=== PATIENT | male | born 1940 | race Caucasian/White ===

== ENCOUNTER 2023-11-10 12:17 | Emergency (ER) | payer MEDICARE, OTHER, SELFPAY ==
[2023-11-10 12:25] VITALS: BP 147/83
--- NOTE | 2023-11-10 12:54 | ED.SKININJ ---
HPI-Injury
General
Chief Complaint: Skin Surface Trauma
Source: patient
Exam Limitations: none
Time Seen by Provider: 11/10/23 12:39
Nursing documentation reviewed up to this point in time: agreed with
Travel History
Have you had any contact with someone who has COVID-19?: No
Do you have any symptoms of coronavirus? Fever > 100 degrees, chills, cough, shortness of breath, sore throat, loss of taste or smell, muscle aches, or headache?: No
History of Present Illness-Injury
Initial Injury comments:
83-year-old male states he was using his table saw and cut the tip of his left thumb. This occurred at home within the past few hours. He is unsure of his last tetanus immunization. He is not anticoagulated.
Past History
Past History
ED Past Medical History: HTN
ED Past Surgical History: Appendectomy, Urological (TURP) and Other (Hernia repair, )
Review of Systems
Review of Systems
Allergies reviewed?: Yes
All Other Systems: ROS reviewed and negative except as documented in HPI and ROS
Skin: Reports other (Cut tip of left thumb )
Phy Exam
Physical Exam
Physical Exam:
PHYSICAL EXAMINATION:
General: no apparent distress, not acutely ill
Neuro: alert and oriented.
Psychiatric: well kept. interactive and cooperative
Musculoskeletal: Moves with ease
Skin: Warm, pink. Tip of left thumb is macerated to about 3 mm deep and 5 mm wide with a small piece of the distal nail avulsed. Bleeding is controlled.
Course
Orders/Labs/Results
Orders:
Orders
11/10/23 12:39
Tetanus/Diphth/Acelpertussis [Adacel] 0.5 ml IM .ONCE ONE
Vital Signs
Initial and Last Documented VS:
Initial Vital Signs
Temp Pulse Resp BP Pulse Ox
98.1 F 84 18 147/83 97
11/10/23 12:25 11/10/23 12:25 11/10/23 12:25 11/10/23 12:25 11/10/23 12:25
Last Documented Vital Signs
Temp Pulse Resp BP Pulse Ox
98.1 F 84 18 147/83 97
11/10/23 12:25 11/10/23 12:25 11/10/23 12:25 11/10/23 12:25 11/10/23 12:25
MDM/Problems Addressed
MDM/Problems Addressed:
83-year-old male states he was using his table saw and cut the tip of his left thumb. This occurred at home within the past few hours. He is unsure of his last tetanus immunization. He is not anticoagulated.
Wound cleansed with soap and water, edges are macerated it is basically an avulsion type injury involving 1 small piece of the distal fingernail, Gelfoam and tube gauze dressing applied.
Tdap updated
*Critical Care Note
Total Time (30-74mins, 75-104mins- exclusive of procedures): Not Applicable
ED Attending Note
-
Portions of this chart may have been created with voice recognition software.� Occasional wrong word or��sound alike� substitutions may have occurred due to the inherent limitations of voice recognition software.
Discharge Plan
Departure
Patient Disposition: Home (Routine Discharge)
Date of Disposition: 11/10/23
Time of Disposition: 12:57
Patient with high blood pressure during this ER visit?: No
Condition: Good
Discharge Problem:
Laceration of left thumb
Instructions: Wound Care (DC)
Prescriptions:
No Action
lisinopril 10 MG tablet
15 mg PO DAILY
hydrocodone-acetaminophen [[place]] 1 EACH tablet
1 ea PO Q6HPRN PRN (Reason: pain) Qty: 40 0RF
Rx Instructions:
Take 1 tablet four times a day, every 6 hours for pain
lorazepam 1 MG tablet
1 mg PO TIDPRN PRN (Reason: pain/spasms) Qty: 40 0RF
Referrals:
Your, Doctor [Other] - As needed
Activity Restrictions/Additional Instructions:
As we discussed, it may take 3 to 4 weeks for this area to heal completely.
Remove the dressing in 2 days then wash it daily with soap and water, apply antibiotic ointment and Band-Aids
Use the aluminum fingertip splint as needed for protection.
Seek medical care immediately for signs of infection which may include increasing redness, pain, swelling, pus drainage or fever
Interventions
Interventions:
*Risk Screen - Suicide Last Done: 11/10/23 12:53
*General Assessment Last Done: 11/10/23 12:53
*Neglect/Abuse Screening Last Done: 11/10/23 12:53
ED- Fall Risk Assessment Last Done: 11/10/23 13:19
*ED COVID-19 Vaccine History Last Done: 11/10/23 12:53
*Nursing Disposition Last Done: 11/10/23 13:19
ED-Skin Assessment Last Done: 11/10/23 12:52
Discharge Date and Time
Discharge Date/Time: 11/10/23 13:20
[2023-11-10] MEDS: ADACEL 0.5 ML IM (13:14)
== END 2023-11-10 13:20 | disposition home or self-care (01) ==
LOC: EMR 12:17
PROVIDERS: EMERGENCY PHYSICIAN Emergency Medicine; FAMILY PHYSICIAN Family Medicine
DX: S61.012A Laceration without foreign body of left thumb without damage to nail, initial encounter (principal); W27.0XXA Contact with workbench tool, initial encounter; Z23 Encounter for immunization
CPT/HCPCS: 99282; 90471; 90715

== ENCOUNTER 2023-11-14 07:58 | Emergency (ER) | payer MEDICARE, OTHER, SELFPAY ==
[2023-11-14 08:03] VITALS: BP 127/70
--- NOTE | 2023-11-14 08:25 | ED.GENMED ---
History of Present Illness
General
Chief Complaint: Urinary Symptoms
Source: patient and spouse
Exam Limitations: none
Time Seen by Provider: 11/14/23 08:20
Travel History
Have you had any contact with someone who has COVID-19?: No
Do you have any symptoms of coronavirus? Fever > 100 degrees, chills, cough, shortness of breath, sore throat, loss of taste or smell, muscle aches, or headache?: No
History of Present Illness
History of Present Illness:
Very pleasant 83-year-old male presents with trouble urinating started about 2 weeks ago trouble opening his bladder saw his PCP and urologist placed on Bactrim and amoxicillin with Flomax scheduled have an ultrasound
He had a button TURP, previously bladder stones previously
No fevers, unable to empty his bladder here,
Past History
Past History
ED Past Medical History: HTN
ED Past Surgical History: Appendectomy, Urological (TURP) and Other (Hernia repair, )
Social History
Tobacco: Non-smoker
Alcohol: None
Drug: None
Personal:
Living: with family
Employment: Retired
Review of Systems
Review of Systems
All Other Systems: Not applicable
Constitutional: Denies fever
: Reports difficulty voiding and urgency; Denies discharge
Phy Exam
Physical Exam
Physical Exam:
Physical Exam
General: no apparent distress, not acutely ill
Neck: No jaundice
Heart: s1/s2 regular rate and rhythm, no murmur. equal radial pulses.
Lungs: no acute respiratory distress. clear bilaterally
Abdomen: Mild suprapubic tenderness
Neuro: alert and oriented. no focal neurological deficits
Skin: no rash
Psychiatric: well kept. interactive and cooperative
Extremities: no edema.
Course
Orders/Labs/Results
Orders:
Orders
11/14/23 08:24
Bladder Scan- Treatment ONCE
11/14/23 08:37
[place]burn Placement- Treatment ONCE
Reason for insertion: Acute Retention
11/14/23 09:04
Lidocaine 2% [Lidocaine Uro-Jet 2%] 1 syringe .ROUTE .STK-MED ONE
11/14/23 09:12
Complete Blood Count/With Diff Urgent
Comprehensive Metabolic Panel Urgent
Urinalysis Reflex To Culture Urgent
Date Specimen was Collected: 11/14/23
Time Specimen was Collected: 08:26
Kidney US [US Renal Only W/O Bladder] Urgent
Comment:
Reason For Exam: trouble urinationg
Abnormal Lab Results
11/14/23
09:12
RBC 4.28 L 10^6/uL
(4.70-6.10)
MCH 31.5 H pg
(27.0-31.0)
Immature Gran % 0.6 H %
(0-0.5)
Monocytes % 10.3 H %
(1.7-9.3)
Creatinine 0.6 L mg/dL
(0.7-1.3)
11/14/23 09:12
11/14/23 09:12
Vital Signs
Initial and Last Documented VS:
Initial Vital Signs
Temp Pulse Resp BP Pulse Ox
97.9 F 89 18 127/70 96
11/14/23 08:03 11/14/23 08:03 11/14/23 08:03 11/14/23 08:03 11/14/23 08:03
Last Documented Vital Signs
Temp Pulse Resp BP Pulse Ox
97.9 F 70 16 121/66 97
11/14/23 08:03 11/14/23 09:18 11/14/23 09:18 11/14/23 11:00 11/14/23 11:00
Procedures
Urinary Catheter
Procedure completed by: shabbir
Type of urinary catheter: indwelling catheter
Catheter size (uzbek): 14
Urine description: clear
Urine output (ml): 450
Additional information:
unable to pass 18 [place] catheter due to possible obstruction centimeter to from the meatus, question stone versus stricture smaller coud� passed without difficulty
MDM/Problems Addressed
Differential Diagnosis Includes:
Retention UTI obstruction
MDM/Problems Addressed:
Trouble urinating
Chronic conditions affecting care:
Urinary prostate issues
Acute Exacerbation and/or Progression of Chronic Illness:
Urinary prostate history
*Critical Care Note
Total Time (30-74mins, 75-104mins- exclusive of procedures): Not Applicable
Update Note
Update Note:
11:45 AM labs noted urine noted ultrasound noted patient much better after Blackburn
ED Attending Note
-
Portions of this chart may have been created with voice recognition software.� Occasional wrong word or��sound alike� substitutions may have occurred due to the inherent limitations of voice recognition software.
Discharge Plan
Departure
Patient Disposition: Home (Routine Discharge)
Date of Disposition: 11/14/23
Time of Disposition: 11:52
Patient with high blood pressure during this ER visit?: No
Condition: Good
Discharge Problem:
Acute urinary retention
Instructions: Urinary Retention (DC)
Prescriptions:
No Action
lisinopril 10 MG tablet
15 mg PO DAILY
hydrocodone-acetaminophen [[place]] 1 EACH tablet
1 ea PO Q6HPRN PRN (Reason: pain) Qty: 40 0RF
Rx Instructions:
Take 1 tablet four times a day, every 6 hours for pain
lorazepam 1 MG tablet
1 mg PO TIDPRN PRN (Reason: pain/spasms) Qty: 40 0RF
Referrals:
Olena Kc DO [Family Provider] -
Mirza Loredo MD [Active] - Follow up in 5-7 days
Activity Restrictions/Additional Instructions:
Stop your antibiotics
Continue Flomax call Dr. Loredo on Thursday to arrange follow-up
Interventions
Interventions:
*General Assessment Last Done: 11/14/23 09:18
*Neglect/Abuse Screening Last Done: 11/14/23 09:18
ED- Fall Risk Assessment Last Done: 11/14/23 09:18
*ED COVID-19 Vaccine History Last Done: 11/14/23 08:10
ED-Male Genitourinary Assessment Last Done: 11/14/23 09:36
[2023-11-14 09:17] VITALS: BP 120/71
[2023-11-14 09:18] VITALS: BP 120/71
[2023-11-14 09:31] LABS: % Eosinophils 2.4 % (0-6); % Immature Granulocytes 0.6 % (0-0.5); % Lymphocytes 26.9 % (20.5-51.1); % Monocytes 10.3 % (1.7-9.3); % Neutrophils 58.8 % (42.2-75.2); Absolute Basophils 0.1 10^3/uL (0-0.2); Absolute Eosinophils 0.1 10^3/uL (0-0.7); Absolute Lymphocytes 1.4 10^3/uL (1.2-3.4); Absolute Monocytes 0.5 10^3/uL (0.1-0.6); Hematocrit 39.9 % (39.0-52.0); Hemoglobin 13.5 g/dL (13.0-18.0); Mean Corp Hgb Conc. 33.8 g/dL (33.0-37.0); Mean Corpuscular Hgb 31.5 pg (27.0-31.0); Mean Corpuscular Volume 93.2 fL (80.0-94.0); Mean Platelet Volume 9.9 fL (7.4-10.4); Nucleated Red Blood Cells % 0 % (-); Platelet Count 259 10^3/uL (130-400); Red Blood Cell Count 4.28 10^6/uL (4.70-6.10); Red Cell Dist. Width 13.4 % (11.5-14.5); Urine Albumin Negative (Neg - Trace); Urine Bilirubin Negative (Negative); Urine Character Clear (Clear); Urine Color Yellow; Urine Glucose Negative (Negative); Urine Ketone Negative (Negative); Urine Leukocyte Negative (Negative); Urine Nitrite Negative (Negative); Urine Occult Blood Negative (Negative); Urine Urobilinogen Negative (Neg - 1+); White Blood Cell Count 5.1 10^3/uL (4.8-10.8)
[2023-11-14 09:42] LABS: ALT (SGPT) 18 U/L (0-50); AST (SGOT) 29 U/L (17-59); Albumin 3.8 g/dl (3.5-5.0); Alkaline Phosphatase 56 U/L (38-126); Blood Urea Nitrogen 18 mg/dl (9-20); Carbon Dioxide 24 mmol/L (22-30); Chloride 106 mmol/L (98-107); Glucose 84 mg/dl (70-99); Potassium 4.2 mmol/L (3.5-5.1); Sodium 135 mmol/L (135-145); Total Bilirubin 0.7 mg/dl (0.2-1.3); Total Protein 6.3 g/dl (6.3-8.2); eGFR > 60.00
[2023-11-14 10:00] VITALS: BP 117/69
[2023-11-14 11:00] VITALS: BP 121/66
[2023-11-14 12:00] VITALS: BP 128/73
== END 2023-11-14 12:51 | disposition home or self-care (01) ==
LOC: EMR 07:58
PROVIDERS: EMERGENCY PHYSICIAN Emergency Medicine; FAMILY PHYSICIAN Family Medicine
DX: R33.9 Retention of urine, unspecified (principal)
CPT/HCPCS: 99284; 51702; 51798; 76775; 80053; 81003; 85025

== ENCOUNTER → 2024-01-18 11:50 | Outpatient (REF) | payer MEDICARE, OTHER, SELFPAY | LOC: CLAB 11:50 | PROVIDERS: ATTENDING PHYSICIAN Specialist | DX: N39.0 Urinary tract infection, site not specified (principal) | CPT/HCPCS: 87077; 87086; 87186 ==